=== PATIENT | female | born 1935 | race Caucasian/White ===

== ENCOUNTER 2017-05-02 11:12 | Inpatient (IN) | payer OTHER ==
[~2017-05-02] VITALS: Ht 154.9 cm; Wt 73.7 kg
--- NOTE | ~2017-05-02 | HC ---
[facility] [place] [address] CONSULTATION Name: MARGOT DOWD Room #: 353-P [facility] IN M.R.#: [id number] Admission: 05/02/17 Attend Phys: Jimmie Fierro MD Discharge: 05/07/17 Date of : 39 Report #: [id number] THIS REPORT FOR: //name// CC: Jimmie Sommer HISTORY OF PRESENT ILLNESS: The patient is a 81-year-old female. It looks like she was admitted a couple of days ago after being found down on her floor for 12 hours, felt to have been a mechanical fall. I am asked to see her for AFib, rapid ventricular response. The patient is alert and oriented. The daughter is in the room who is a physical therapist and she is very helpful. 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 Unfortunately, she slipped and was found down and was not able to get up off her back. She is in AFib and anticoagulated with Xarelto. She saw a scheduling manager once down in [facility]. She has not had any followup. I do not know about any LV dysfunction or EF. There has been no history of coronary artery disease. She denies any chest pain or angina. Her rates have been from 100 to 120 overnight, but she is only on Cardizem 120 for rate control. She has otherwise been fairly healthy and trying to remain independent. No bleeding issues on the Xarelto. PAST MEDICAL HISTORY: Positive for the AFib, RVR, some DJD, generalized weakness, essential tremor, history of DVT left lower leg, hypothyroidism, glaucoma and a pulmonary embolism remotely. SOCIAL HISTORY: She is . She has 3 daughters. She lives independently. No alcohol or tobacco. FAMILY HISTORY: Father did have premature coronary disease and from his third infarct. ALLERGIES: CODEINE. REVIEW OF SYSTEMS: Essentially negative except for some generalized difficulty getting around. She has canes and walkers. PHYSICAL EXAMINATION: VITAL SIGNS: Pulse is 100-110, blood pressure is 90/60. GENERAL: She is alert and oriented, no distress. HEENT: Eyes reveal xanthelasmas. Pharynx is clear. NECK: Shows preserved upstrokes without JVD or bruits. LUNGS: Clear. CARDIAC: Irregularly irregular, S1, S2. There is a faint holosystolic murmur. ABDOMEN: Soft. No HSM, abdominal bruit. EXTREMITIES: Reveal trace edema. Distal pulses diminished, but intact. [facility] [address] [place] [address] CONSULTATION Name: MAYELA AvalosUMWALTMARGOT Room #: 353-P [facility] IN M.R.#: [id number] Admission: 05/02/17 Attend Phys: Jimmie Fierro MD Discharge: 05/07/17 Date of : 39 Report #: [id number] NEUROLOGIC: Nonfocal. SKIN: Warm and dry without xanthoma or ulcer. MUSCULOSKELETAL: No gross joint deformity, some valgus deformities of the knees. ASSESSMENT: 1. Atrial fibrillation, rapid ventricular response. 2. Status post fall and generalized weakness. 3. History of hypertension with some lability. 4. Hypothyroidism. 5. Chronic anticoagulation secondary to prior pulmonary embolism and atrial fibrillation. RECOMMENDATIONS AND PLAN: I agree with continuing the p.o. Cardizem. We will discontinue lisinopril with marginal blood pressure here. Pressure should be allowed to trend higher. We will add Toprol 50 for rate. Would consider every other day on Lasix therapy as we are trying to allow this blood pressure up. I will obtain an echo Doppler and EKG today. I discussed this plan with him in detail. Scheduled for rehabilitation facility on Saturday, I think this is probably reasonable. We should be able to control the heart rate with Cardizem and Toprol holding other antihypertensive medications. We will review the echo and see her in the morning. Thank you for asking us to care for this patient. <ELECTRONICALLY SIGNED> By: Edy Melendez MD, FACC 05/09/17 1539 [id number] Edy Melendez MD, FACC /nt
--- NOTE | ~2017-05-02 | EKG ---
[address] [address] ELECTROCARDIOGRAM REPORT Name: MAYELA ALVARADOMARGOT Room #: 353-P ADM IN M.R.#: [id number] Admission: 05/02/17 Attend Phys: Jimmie Fierro MD Discharge: Date of : 39 Report #: [id number] THIS REPORT FOR: //name// [facility] ED Test Date: 2017-05-02 Test Time: 11:15:41 Pat Name: MARGOT ALVARADO Department: Room: [facility] Gender: F Technology Manager: [facility] : 1935 Requested By: Darien Mendes Order Number: [id number] MD: Espinoza Deshpande Measurements Intervals [place] Rate: 154 P: VT: QRS: -8 QRSD: 77 T: 173 QT: 278 QTc: 445 Interpretive Statements Atrial fibrillation with rapid V-rate Repolarization abnormality, prob rate related Compared to ECG 09/03/1994 11:30:00 Atrial fibrillation has replaced sinus rhythm nonspecific change in the ST and T-wave segments Electronically Signed On 05-05-2017 13:20:37 CDT by Espinoza Deshpande [email or web address] <ELECTRONICALLY SIGNED> By: Espinoza Deshpande MD, [facility] 05/05/17 1320 1115 1115 Espinoza Deshpande MD, [facility] /EPI
--- NOTE | ~2017-05-02 | 2DMMODE ---
[facility] [address] [place] [address] 2 D/M-MODE ECHOCARDIOGRAM Name: MARGOT DOWD Room #: 353-P ADM IN M.R.#: [id number] Admission: 05/02/17 Attend Phys: Jimmie Fierro MD Discharge: Date of : 39 Date of Service: 05/04/17 1304 Report #: [id number] THIS REPORT FOR: //name// APPROVED REPORT Study performed: 05/04/2017 09:24:15 EXAM: Comprehensive 2D, Doppler, and color-flow Echocardiogram Patient Location: Bedside Room #: 353 Status: on-call BSA: 1.73 HR: 108 bpm BP: 122/88 mmHg Rhythm: Atrial Fibrillation Other Information Study Quality: Good Risk Factors: Cardiac Risk Factors: HTN Indications Congestive Heart Failure Atrial Fibrillation Weakness 2D Dimensions LVEF(%): 52.62 (>50%) IVSd: 9.18 (7-11mm) LVOT Diam: 17.00 (18-24mm) LVDd: 50.28 mm PWd: 9.38 (7-11mm) Ascending Ao: 29.50 (22-36mm) LVDs: 36.63 (25-40mm) Aortic Root: 26.17 mm LV Single Plane 4CH: 49.84 % LV Single Plane 2CH: 46.10 % Mess[place]'s LVEF: 47.97 % Volumes Left Atrial Volume (Systole) Single Plane 4CH: 61.50 mL Single Plane 2CH: 47.18 mL LA ESV Index: 33.00 mL/m2 Aortic Valve AoV Peak Fede.: 0.97 m/s AO Peak Gr.: 4.06 mmHg LVOT Max P.66 mmHg [facility] [address] [place] [address] 2 D/M-MODE ECHOCARDIOGRAM Name: MAYELA MARGOT ALVARADO Room #: 353-[facility] IN ..#: [id number] Admission: 05/02/17 Attend Phys: Jimmie Fierro MD Discharge: Date of : 39 Date of Service: 05/04/17 1304 Report #: [id number] LVOT Max V: 0.64 m/s TATY Vmax: 1.54 cm2 Pulmonary Valve PV Peak Fede.: 0.69 m/s PV Peak Gr.: 1.89 mmHg Tricuspid Valve TR Peak Fede.: 2.66 m/s RAP Estimate: 10.00 mmHg TR Peak Gr.: 28.22 mmHg PA Pressure: 38.00 mmHg Left Ventricle The left ventricle is normal size. There is normal LV segmental wall motion. There is normal left ventricular wall thickness. Left ventricular systolic function is normal. The left ventricular ejection fraction is within the normal range. LVEF is 50-55%. This study is not technically sufficient to allow evaluation of the LV diastolic function due to atrial fibrillation. Right Ventricle The right ventricle is normal size. The right ventricular systolic function is normal. Atria The left atrium size is borderline enlarged The atrial septum is aneurysmal. The right atrium size is normal.upper limits normal Aortic Valve The aortic valve is normal in structure. No aortic regurgitation is present. There is no aortic valvular stenosis. Mitral Valve The mitral valve is normal in structure. Mild to moderate mitral regurgitation. No evidence of mitral valve stenosis. Tricuspid Valve The tricuspid valve is normal in structure. Moderate tricuspid regurgitation. Pulmonary artery pressure is 38 mmHg. Pulmonic Valve The pulmonary valve is normal in structure. There is no pulmonic valvular regurgitation. Great Vessels The aortic root is normal in size. IVC is normal in size and [facility] [address] [place] [address] 2 D/M-MODE ECHOCARDIOGRAM Name: MAYELA MARGOT ALVARADO Room #: 353-P [facility] IN M.R.#: [id number] Admission: 05/02/17 Attend Phys: Jimmie Fierro MD Discharge: Date of : 39 Date of Service: 05/04/17 1304 Report #: [id number] collapses <50% with inspiration. Pericardium There is no pericardial effusion. <Conclusion> The left ventricle is normal size. LVEF is 50-55%. This study is not technically sufficient to allow evaluation of the LV diastolic function due to atrial fibrillation. The right ventricle is normal size. The left atrium size is borderline enlarged The right atrium size is normal.upper limits normal The aortic valve is normal in structure. There is no aortic valvular stenosis. Mild to moderate mitral regurgitation. Moderate tricuspid regurgitation. Pulmonary artery pressure is 38 mmHg. There is no pericardial effusion. <ELECTRONICALLY SIGNED> By: Edy Melendez MD, FACC 05/04/17 1304 1304 1304 Edy Melendez MD, FACC /INF
--- NOTE | ~2017-05-02 | EKG ---
[address] [place] [address] ELECTROCARDIOGRAM REPORT Name: MAYELA ALVARADOMARGOT Room #: 353- ADM IN M.R.#: [id number] Admission: 05/02/17 Attend Phys: Jimmie Fierro MD Discharge: Date of : 39 Report #: [id number] THIS REPORT FOR: //name// [facility] Test Date: 2017-05-04 Test Time: 09:03:58 Pat Name: MARGOT ALVARADO Department: Room: 353 Gender: F Pediatric Nephrologist: aleta : 1935 Requested By: Edy Melendez Order Number: [id number] MD: Espinoza Deshpande Measurements Intervals [place] Rate: 116 P: OR: QRS: 16 QRSD: 77 T: 170 QT: 362 QTc: 503 Interpretive Statements Atrial fibrillation Low voltage, precordial leads Nonspecific ST and T wave abnormality Compared to ECG 09/03/1994 11:30:00 Low QRS voltage now present Nonspecific change in the ST and T-wave segments Electronically Signed On 05-05-2017 13:43:22 CDT by Espinoza Deshpande [email or web address] <ELECTRONICALLY SIGNED> By: Espinoza Deshpande MD, [facility] 05/05/17 1343 [id number] [id number] Espinoza Deshpande MD, [facility] /EPI
[2017-05-02 11:14] VITALS: BP 123/73
[2017-05-02 11:54] LABS: ABSOLUTE NEUTROPHILS 5.6 thou/uL (1.4-8.2); BASOPHILS 0.4 % (0.0-2.0); EOSINOPHILS 0.2 % (0.0-3.0); HEMATOCRIT 40.2 % (37.0-47.0); LYMPHOCYTES 14.7 % (24.0-44.0); MCHC 32.3 g/dL (28.0-37.0); MCV 86.6 fL (80.0-100.0); MONOCYTES 9.3 % (1.0-8.0); PLATELET COUNT 296 thou/uL (150-400); POLYS 75.4 % (36.0-66.0); RBC 4.64 mil/uL (4.20-5.00); RDW 15.7 % (10.5-14.5); WBC 7.5 thou/uL (4.0-11.0)
[2017-05-02 11:57] LABS: ANION GAP 8 mmol/L (7-16); BUN 15 mg/dL (7-18); CALCIUM 9.2 mg/dL (8.5-10.1); CHLORIDE 99 mmol/L (98-107); CO2 23 mmol/L (21-32); CREATININE 0.8 mg/dL (0.6-1.0); GLUCOSE 160 mg/dL (74-106); POTASSIUM 4.5 mmol/L (3.5-5.1); SODIUM 130 mmol/L (136-145)
[2017-05-02 11:58] LABS: APTT 28.3 Seconds (24.5-32.8); INR 1.1; PROTIME 11.4 Seconds (9.3-11.4)
[2017-05-02 12:14] LABS: ALBUMIN 3.1 g/dL (3.4-5.0); MAGNESIUM 2.1 mg/dL (1.8-2.4); SGOT 57 U/L (15-37); SGPT 52 U/L (30-65); TOTAL BILIRUBIN 0.7 mg/dL (<0.1-1.0); TOTAL PROTEIN 7.8 g/dL (6.4-8.2); TROPONIN-I < 0.04 ng/mL (<0.06)
[2017-05-02 12:23] LABS: URINE BILIRUBIN NEGATIVE (Negative); URINE BLOOD NEGATIVE (Negative); URINE CLARITY CLEAR; URINE COLOR YELLOW; URINE GLUCOSE-RANDOM* NEGATIVE (Negative); URINE KETONES NEGATIVE (Negative); URINE LEUKOCYTES-REFLEX NEGATIVE (Negative); URINE NITRITE-REFLEX NEGATIVE (Negative); URINE PROTEIN (DIPSTICK) NEGATIVE (Negative); URINE UROBILINOGEN 0.2 E.U./dl (0.2-1.0)
[2017-05-02 12:31] VITALS: BP 109/75
[2017-05-02 12:34] LABS: AMP/METHAMP Negative (Negative); BARBITURATES POSITIVE (Negative); BENZODIAZEPINES Negative (Negative); COCAINE Negative (Negative); METHADONE Negative (Negative); OPIATES Negative (Negative); PCP Negative (Negative)
[2017-05-02 13:01] VITALS: BP 124/82
[2017-05-02] MEDS ORDERED: AZOPT OPHTH1 %/10 M1 OPHTHALMIC (13:18)
[2017-05-02] MEDS ORDERED: DILTIAZEM HCL120 M1 PO (13:18)
[2017-05-02] MEDS ORDERED: LISINOPRIL20 MG PO (13:18)
[2017-05-02] MEDS ORDERED: SYNTHROID88 MCG PO (13:19)
[2017-05-02] MEDS ORDERED: HYDROCHLOROTHIA25 M2 PO (13:19)
[2017-05-02] MEDS ORDERED: XALATAN2.5 ML OPHTHALMIC (13:20)
[2017-05-02] MEDS ORDERED: VESICARE10 M1 PO (13:20)
[2017-05-02 13:38] VITALS: BP 127/75
[2017-05-02] MEDS ORDERED: PROTONIX40 M1 PO (15:00)
[2017-05-02] MEDS ORDERED: XARELTO20 MG PO (15:01)
[2017-05-02] MEDS ORDERED: POTASSIUM CHLO10 MEQ PO (15:02)
[2017-05-02 15:05] VITALS: BP 107/69
[2017-05-02] MEDS ORDERED: SENNA-DOCUSATE1 EACH PO (15:06)
[2017-05-02 19:50] VITALS: BP 124/78
[2017-05-02] MEDS ORDERED: LASIX 40 MG TAB40 M2 PO (20:14)
[2017-05-02] MEDS ORDERED: PRIMIDONE50 MG PO (20:21)
[2017-05-03] VITALS: BP 106/76
[2017-05-03 03:40] VITALS: BP 121/79
[2017-05-03 05:38] LABS: HEMATOCRIT 31.1 % (37.0-47.0); MCH 28.6 pg (26.0-34.0); MCHC 32.8 g/dL (28.0-37.0); RBC 3.58 mil/uL (4.20-5.00); RDW 15.2 % (10.5-14.5); WBC 4.4 thou/uL (4.0-11.0)
[2017-05-03 05:43] LABS: CALCIUM 8.2 mg/dL (8.5-10.1); CREATININE 0.8 mg/dL (0.6-1.0); POTASSIUM 3.6 mmol/L (3.5-5.1)
[2017-05-03 05:56] LABS: HEMOGLOBIN 10.2 gm/dL (12.0-15.0)
[2017-05-03 07:54] VITALS: BP 133/86
[2017-05-03 11:03] VITALS: BP 127/87
[2017-05-03 15:22] VITALS: BP 109/71
[2017-05-03 19:20] VITALS: BP 121/82
[2017-05-04 03:18] VITALS: BP 122/88
[2017-05-04 07:00] VITALS: BP 115/67
[2017-05-04 12:22] VITALS: BP 115/67
[2017-05-04 15:53] VITALS: BP 132/74
[2017-05-04 19:42] VITALS: BP 129/96
[2017-05-05 04:10] VITALS: BP 128/97
[2017-05-05 07:00] LABS: HEMATOCRIT 35.7 % (37.0-47.0); HEMOGLOBIN 11.5 gm/dL (12.0-15.0); MCHC 32.4 g/dL (28.0-37.0); MCV 86.6 fL (80.0-100.0); RBC 4.12 mil/uL (4.20-5.00); RDW 15.6 % (10.5-14.5); WBC 6.2 thou/uL (4.0-11.0)
[2017-05-05 07:16] LABS: ALBUMIN 2.7 g/dL (3.4-5.0); CREATININE 0.9 mg/dL (0.6-1.0); POTASSIUM 3.9 mmol/L (3.5-5.1); TOTAL BILIRUBIN 0.4 mg/dL (<0.1-1.0); TOTAL PROTEIN 6.5 g/dL (6.4-8.2)
[2017-05-05 07:58] VITALS: BP 136/87
[2017-05-05 11:11] VITALS: BP 122/83
[2017-05-05 15:20] VITALS: BP 125/76
[2017-05-05 18:58] VITALS: BP 127/87
[2017-05-06 03:23] VITALS: BP 117/78
[2017-05-06 07:27] VITALS: BP 111/60
[2017-05-06] MEDS ORDERED: ERGOCALCIF50000 UNIT PO (08:03)
[2017-05-06] MEDS ORDERED: B-12 DOTS500 MCG PO (08:03)
[2017-05-06] MEDS ORDERED: VITAMIN D2000 UNIT PO (08:03)
[2017-05-06 12:15] VITALS: BP 133/92
[2017-05-06 17:35] VITALS: BP 146/99
[2017-05-06 19:45] VITALS: BP 154/98
[2017-05-07 04:00] VITALS: BP 143/81
[2017-05-07 06:42] LABS: ABSOLUTE NEUTROPHILS 3.2 thou/uL (1.4-8.2); BASOPHILS 1.1 % (0.0-2.0); EOSINOPHILS 2.5 % (0.0-3.0); HEMOGLOBIN 11.6 gm/dL (12.0-15.0); LYMPHOCYTES 34.4 % (24.0-44.0); MCH 28.8 pg (26.0-34.0); MCHC 33.3 g/dL (28.0-37.0); MCV 86.5 fL (80.0-100.0); MONOCYTES 9.1 % (1.0-8.0); PLATELET COUNT 269 thou/uL (150-400); POLYS 52.9 % (36.0-66.0); RBC 4.05 mil/uL (4.20-5.00); RDW 15.9 % (10.5-14.5); WBC 6.1 thou/uL (4.0-11.0)
[2017-05-07 06:49] LABS: CALCIUM 8.6 mg/dL (8.5-10.1); CREATININE 0.9 mg/dL (0.6-1.0); POTASSIUM 4.4 mmol/L (3.5-5.1)
[2017-05-07] MEDS ORDERED: CARDIZEM CD 18180 M3 PO (09:19)
[2017-05-07] MEDS ORDERED: LOPRESSOR25 PO (09:19)
[2017-05-07 11:00] VITALS: BP 133/94
== END 2017-05-07 14:20 | DRG 308 ==
LOC: ER 11:12 → 3W 12:20 → EROBS 12:20 → 3W 13:10
PROVIDERS: Emergency Medicine; Hospitalist
DX: I48.91 Unspecified atrial fibrillation (principal); E43 Unspecified severe protein-calorie malnutrition; R55 Syncope and collapse; I50.9 Heart failure, unspecified; E03.9 Hypothyroidism, unspecified; H40.9 Unspecified glaucoma; I11.0 Hypertensive heart disease with heart failure; M19.90 Unspecified osteoarthritis, unspecified site; E78.5 Hyperlipidemia, unspecified; Z60.2 Problems related to living alone; M62.84 Sarcopenia; R25.1 Tremor, unspecified; W01.0XXA Fall on same level from slipping, tripping and stumbling without subsequent striking against object, initial encounter; Y93.89 Activity, other specified; Y92.89 Other specified places as the place of occurrence of the external cause; Y99.8 Other external cause status; Z86.711 Personal history of pulmonary embolism; Z68.30 Body mass index [BMI] 30.0-30.9, adult; Z86.718 Personal history of other venous thrombosis and embolism; Z88.6 Allergy status to analgesic agent; Z79.01 Long term (current) use of anticoagulants; Z79.899 Other long term (current) drug therapy
CPT/HCPCS: 10879